=== PATIENT | female | born 2000 | race African-American/Black ===

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

== ENCOUNTER 2022-05-30 12:35 | Emergency (ER) | payer BC, MEDICAID, OTHER, SELFPAY ==
[2022-05-30] MEDS ORDERED: Acetaminophen 500 MG TAB ONE (13:51)
[2022-05-30 15:44] LABS: SARS-CoV-2 NAA Rapid Test DETECTED (NotDetected)
== END 2022-05-30 15:53 | disposition home or self-care (01) ==
LOC: ERS 12:35
DX: U07.1 COVID-19 (principal)
CPT/HCPCS: 71045

== ENCOUNTER 2022-08-01 18:22 | Emergency (ER) | payer OTHER ==
[2022-08-01] MEDS ORDERED: Ondansetron ODT 4 MG TAB ONE (20:48)
== END 2022-08-01 21:25 | disposition home or self-care (01) ==
LOC: ERS 18:22
DX: R11.2 Nausea with vomiting, unspecified (principal)
CPT/HCPCS: 99283; Q0162

== ENCOUNTER 2023-11-10 17:17 | Emergency (ER) | payer OTHER, SELFPAY ==
[2023-11-10] MEDS ORDERED: Ondansetron ODT 4 MG TAB ONE (17:48)
[2023-11-10 18:06] LABS: Bacteria/HPF None Seen HPF (None Seen); Bilirubin Negative (Negative); Blood, Urine Negative (Negative); CAUTI Indications for Culture Dysuria,urgency,freq; Clarity Clear (Clear); Glucose, Urine (Dipstick) Normal (Negative); Ketone, Urine 80 mg/dL (Negative); Leukocyte Negative Leu/uL (Negative); Nitrite Negative (Negative); Pregnancy Test - Urine (BHCG) Negative (Negative); Pregu Control Background? CLEAR/WHITE (CLR/WHITE); Pregu Control Bar Appear? YES (CONTROL BAR); Protein, Urine (Dipstick) 30 mg/dL (Neg-Trace); RBC/HPF 0-3 HPF (0-3); Specific Gravity 1.042 (1.002-1.036); Specific Gravity, Urine 1.042 (1.002-1.036); WBC/HPF 0-3 HPF (0-3); pH, Urine 6.5 (5.0-9.0)
[2023-11-10 18:07] LABS: Urine Culture Reflex No No
[2023-11-10] MEDS ORDERED: Ibuprofen 200 MG TAB ONE (18:19)
== END 2023-11-10 18:30 | disposition home or self-care (01) ==
LOC: ERS 17:17
DX: R11.0 Nausea (principal)
CPT/HCPCS: 81001; 81025; 99283; Q0162